=== PATIENT | male | born 1965 | race Caucasian/White ===

== ENCOUNTER 2018-09-01 10:10 | Observation (INO) | payer BC, OTHER ==
[2018-09-01 10:10] VITALS: BP 135/85
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
[2018-09-01 11:18] LABS: BASO # 0.1 x10^3/uL (0.0-0.2); BASO % 1 % (0-3); EOS # 0.1 x10^3/uL (0.0-0.7); EOS % 1 % (0-3); HEMATOCRIT 45.2 % (39.0-53.0); HEMOGLOBIN 15.2 g/dL (13.0-17.5); LYMPH # 1.7 x10^3/uL (1.0-4.8); LYMPH % 18 % (24-48); MEAN CORPUSCULAR HEMOGLOBIN 30 pg (25-35); MEAN CORPUSCULAR HGB CONC 34 g/dL (31-37); MEAN CORPUSCULAR VOLUME 89 fL (79-100); MONO # 0.8 x10^3/uL (0.0-1.1); MONO % 9 % (0-9); NEUT # 6.8 x10^3uL (1.8-7.7); NEUT % 72 % (31-73); PLATELET COUNT 220 x10^3/uL (140-400); RED BLOOD COUNT 5.06 x10^6/uL (4.30-5.70); RED CELL DISTRIBUTION WIDTH 13.4 % (11.5-14.5); WHITE BLOOD COUNT 9.4 x10^3/uL (4.0-11.0)
[2018-09-01 11:38] LABS: ALBUMIN 3.6 g/dL (3.4-5.0); ALBUMIN/GLOBULIN RATIO 1.2 (1.0-1.7); CALCIUM 8.8 mg/dL (8.5-10.1); CREATININE 1.2 mg/dL (0.7-1.3); GFR 62.9; TOTAL BILIRUBIN 0.4 mg/dL (0.2-1.0); TOTAL PROTEIN 6.6 g/dL (6.4-8.2)
[2018-09-01 12:27] LABS: BARBITURATES NEG (NEG); BENZODIAZEPINES NEG (NEG); CANNABINOIDS NEG (NEG); COCAINE NEG (NEG); METHADONE NEG (NEG); OPIATES NEG (NEG); PHENCYCLIDINE NEG (NEG)
[2018-09-01 12:44] LABS: AMPHETAMINE/METHAMPHETAMINE NEG (NEG)
[2018-09-01 13:10] LABS: BACTERIA,URINE 0 /HPF (0-FEW); BILIRUBIN,URINE NEG (NEG); CLARITY,URINE CLEAR; COLOR,URINE YELLOW; GLUCOSE,URINE NEG (NEG); NITRITE,URINE NEG (NEG); RBC,URINE 0 /HPF (0-2); SQUAMOUS EPITHELIAL CELL,UR OCC /LPF; UROBILINOGEN,URINE 0.2 mg/dL (0.2 mg/dL); WBC,URINE 0 /HPF (0-4)
[2018-09-01] MEDS ORDERED: ALPR0.5T PO (15:41)
[2018-09-01] MEDS ORDERED: SERT25TA PO (15:41)
[2018-09-01 15:51] VITALS: BP 121/78
[2018-09-01 19:25] VITALS: BP 119/75
[2018-09-01] MEDS ORDERED: ALPRAZolam 0.5 MG TABLET PO SCH (21:00)
[2018-09-01] MEDS ORDERED: PRAZOSIN 1 MG CAPSULE. PO SCH (21:00)
[2018-09-02 00:04] VITALS: BP 128/68
[2018-09-02 05:28] VITALS: BP 110/77
[2018-09-02] MEDS ORDERED: SERTRALINE 25 MG TABLET. PO SCH (09:00)
[2018-09-02] MEDS ORDERED: ACETAMINOPHEN 325 MG TABLET PO PRN (09:45)
[2018-09-02] MEDS ORDERED: OLAN5TAB5 PO (10:36)
[2018-09-02] MEDS ORDERED: PRAZ1CAP PO (10:36)
--- NOTE | 2018-09-02 12:26 | PDOC ---
Exam Note: Quoc Note: Please also refer to the separate dictated note~for this date of service dictated separately.~Patient seen individually. Discussed the patient with Nursing staff reviewed the chart.~Reviewed interim history and current functioning. Reviewed vital signs,~Labs/ Radiology~and current medications noted below. Continue current treatment with the changes noted in the dictated addendum note. late entry for 09/01/18 Assessment: Vital Signs: VS - Last 72 Hours, by Label Date Time Temp Pulse Resp B/P (MAP) Pulse Ox O2 Delivery O2 Flow Rate FiO2 09/02/18 08:00 Room Air 09/02/18 05:28 98.2 82 18 110/77 (88) 93 Room Air 09/02/18 00:04 98.5 68 128/68 (88) 98 Room Air 09/01/18 20:35 75 121/78 09/01/18 20:00 Room Air 09/01/18 19:25 98.2 76 20 119/75 (90) 94 Room Air 09/01/18 15:51 98.2 75 20 121/78 (92) 95 Room Air 09/01/18 11:00 Room Air 09/01/18 10:10 98.3 65 20 135/85 (102) 94 Room Air Vital Signs Date Time Temp Pulse Resp B/P (MAP) Pulse Ox O2 Delivery O2 Flow Rate FiO2 09/02/18 08:00 Room Air 09/02/18 05:28 98.2 82 18 110/77 (88) 93 I&O Intake and Output 09/02/18 07:00 Intake Total 820 ml Balance 820 ml Intake Oral 820 ml # Voids 5 Current Medications: Meds: Current Medications Olanzapine (ZyPREXA ZYDIS) 5 mg PRN Q2HR PRN PO ANXIETY / AGITATION; Start 09/01/18 at 11:15; Stop 09/02/18 at 11:13; Status DC Alprazolam (Xanax) 0.5 mg QHS PO Last administered on 09/01/18at 20:35; Start 09/01/18 at 21:00; Stop 09/02/18 at 11:13; Status DC Sertraline HCl (Zoloft) 25 mg DAILY PO Last administered on 09/02/18at 09:29; Start 09/02/18 at 09:00; Stop 09/02/18 at 11:13; Status DC Prazosin HCl (Minipress) 1 mg HS PO Last administered on 09/01/18at 20:35; Start 09/01/18 at 21:00; Stop 09/02/18 at 11:13; Status DC Acetaminophen (Tylenol) 650 mg PRN Q6HRS PRN PO PAIN / TEMP Last administered on 09/02/18at 09:56; Start 09/02/18 at 09:45; Stop 09/02/18 at 11:13; Status DC Active Scripts Active Zyprexa Zydis (Olanzapine) 5 Mg Tab.rapdis 5 Mg PO PRN Q2HR PRN Minipress (Prazosin Hcl) 1 Mg Capsule 1 Mg PO HS Reported Zoloft (Sertraline Hcl) 25 Mg Tablet 1 Tab PO DAILY Xanax (Alprazolam) 0.5 Mg Tablet 1 Tab PO HS I have reviewed the current psychotropics carefully including drug interactions. Risk benefit ratio favors no change other than as noted in my dictated progress note. Diagnosis: Problems: (1) PTSD (post-traumatic stress disorder) (2) Anxiety TERI ROSALES MD Sep 02, 2018 12:26
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
== END 2018-09-02 11:12 | disposition home or self-care (01) ==
LOC: 1 SOUTH 10:10 → INTOOBSV 10:10
PROVIDERS: ADMIT Family Medicine; ATTEND Family Medicine
DX: F43.10 Post-traumatic stress disorder, unspecified (principal); F41.9 Anxiety disorder, unspecified; G47.9 Sleep disorder, unspecified; Z79.899 Other long term (current) drug therapy
CPT/HCPCS: 36415; 80053; 80307; 81001; 85025; 87086; G0378; G0379; G0480

== ENCOUNTER → 2019-07-17 | Outpatient (CLI) | payer BC ==
[~2019-07-17] MED LIST: ALPR0.5T PO; BUPIVACAINE MPF 0.25% 10 ML VIAL. ONE; DEXAMETHASONE SOD PHOS 10 MG/ML VIAL ONE; GABA-586 PO; IOHEXOL 300 MG/ML 50 ML VIAL. ONE; LIDOCAINE 1% PF 30 ML VIAL. ONE; OLAN5TAB5 PO; PRAZ1CAP PO; SERT25TA PO; TRAM50TA PO
[2019-07-17 10:58] VITALS: BP 126/75
== END ==
LOC: SURG 09:28
PROVIDERS: ATTEND Anesthesiology
DX: M54.16 Radiculopathy, lumbar region (principal); M47.816 Spondylosis without myelopathy or radiculopathy, lumbar region; F17.210 Nicotine dependence, cigarettes, uncomplicated
CPT/HCPCS: 64483; 64484; J1100; J2001; J3490; Q9967

== ENCOUNTER 2019-12-14 09:07 | Inpatient (IN) | payer BC ==
[~2019-12-14] VITALS: Ht 182.9 cm; Wt 85.2 kg
[~2019-12-14 09:07] MED LIST changes: -BUPIVACAINE MPF 0.25% 10 ML VIAL. ONE; -DEXAMETHASONE SOD PHOS 10 MG/ML VIAL ONE; -IOHEXOL 300 MG/ML 50 ML VIAL. ONE; -LIDOCAINE 1% PF 30 ML VIAL. ONE
[2019-12-14] MEDS ORDERED: KETOROLAC 30 MG/ML VIAL. IVP PRN (10:00)
[2019-12-14] MEDS ORDERED: traMADol 50 MG TABLET PO PRN (10:00)
[2019-12-14] MEDS ORDERED: ASPI-630 PO (10:12)
[2019-12-14] MEDS ORDERED: IOHEXOL 300 MG/ML 75 ML VIAL. IV ONE (10:15)
[2019-12-14 10:23] LABS: BASO # 0.1 x10^3/uL (0.0-0.2); BASO % 1 % (0-3); EOS % 0 % (0-3); HEMATOCRIT 50.9 % (39.0-53.0); HEMOGLOBIN 16.8 g/dL (13.0-17.5); LYMPH # 1.2 x10^3/uL (1.0-4.8); LYMPH % 10 % (24-48); MEAN CORPUSCULAR HEMOGLOBIN 30 pg (25-35); MEAN CORPUSCULAR HGB CONC 33 g/dL (31-37); MEAN CORPUSCULAR VOLUME 91 fL (79-100); MONO # 1.1 x10^3/uL (0.0-1.1); MONO % 10 % (0-9); NEUT # 9.3 x10^3uL (1.8-7.7); NEUT % 80 % (31-73); PLATELET COUNT 214 x10^3/uL (140-400); RED CELL DISTRIBUTION WIDTH 13.9 % (11.5-14.5); WHITE BLOOD COUNT 11.7 x10^3/uL (4.0-11.0)
[2019-12-14 10:27] LABS: ALBUMIN/GLOBULIN RATIO 1.1 (1.0-1.7); CREATININE 1.5 mg/dL (0.7-1.3); GFR 48.4; TOTAL BILIRUBIN 0.5 mg/dL (0.2-1.0); TOTAL PROTEIN 7.8 g/dL (6.4-8.2)
[2019-12-14 10:38] VITALS: BP 123/79
[2019-12-14 10:40] LABS: INFLUENZA A PATIENT NEGATIVE (NEGATIVE); INFLUENZA B PATIENT NEGATIVE (NEGATIVE)
[2019-12-14] MEDS ORDERED: BENZOCAINE/MENTHOL LOZNGE 18'S BOX. PO PRN (10:45)
[2019-12-14] MEDS: IV NORMAL SALINE 1,000ML 1,000 ML IV SCH ×2 (10:46→17:41)
[2019-12-14] MEDS: KETOROLAC 30 MG/ML VIAL. IVP PRN (10:49)
[2019-12-14 11:03] LABS: MONONUCLEOSIS PATIENT NEGATIVE (NEGATIVE)
[2019-12-14] MEDS: IPRATRPIUM/ALBUTEROL 0.5/2.5MG 3 ML NEBU. NEB SCH ×3 (11:19→21:11)
--- NOTE | 2019-12-14 11:35 | RAD ---
CT SOFT TISSUE NECK W/CONTRAST History: Swollen tonsils and neck. Technique: CT imaging was performed of the neck soft tissues with contrast. Coronal and sagittal reconstructions were performed. Exposure: One or more of the following individualized dose reduction techniques were utilized for this examination: 1. Automated exposure control 2. Adjustment of the mA and/or kV according to patient size 3. Use of iterative reconstruction technique. Comparison: None Findings: Enlarged palatine tonsils, right greater than left. Focal hypoattenuation within the right inferior peritonsillar region measures 1.1 x 0.7 x 1.0 cm (series 2 image 68 and series 4 image 48). Enhancing thickened right hypopharyngeal mucosa. Prominent lingual tonsils. Mildly prominent right deep cervical chain lymph nodes. No pathologic lymphadenopathy. Normal appearance of the bilateral submandibular and parotid glands. Unremarkable thyroid gland. Imaged lung apices are unremarkable. Moderate right maxillary sinus polypoid mucosal thickening. Partial opacification of imaged ethmoid air cells. Mastoid air cells are clear. Imaged orbits and intracranial contents are unremarkable. Mild multilevel cervical spondylosis most prominent C5-C6. Impression: 1. Enlarged enhancing bilateral palatine tonsils, right greater than left. 2. Hypoattenuating focus within the right inferior peritonsillar region, may represent phlegmon/early abscess. Recommend follow-up to ensure resolution. 3. Prominent lingual tonsils. Electronically signed by: Kurt Mcdonald DO (12/14/2019 11:32 AM) [id number]
[2019-12-14] MEDS ORDERED: methylPREDNISolone SOD SUCC PF 40 MG/ML VIAL. IV SCH ×2 (12:00→21:00)
[2019-12-14] MEDS: PENICILLIN G K 5,000,000 UNIT in IV NORMAL SALINE 100ML 100 ML IV SCH ×2 (12:07→17:41)
--- NOTE | 2019-12-14 12:56 | RAD ---
CHEST PA LATERAL History: Shortness of breath, respiratory arrest Comparison: 02/01/2018 two-view chest x-ray. Findings: Frontal and lateral views of the chest were obtained. The cardiomediastinal silhouette is normal. Pulmonary vasculature is normal. The lungs are clear. No pleural effusion or pneumothorax is seen. There is no acute bone abnormality. IMPRESSION: No acute cardiopulmonary process. Electronically signed by: Juline Jovel MD (12/14/2019 12:53 PM) [facility]
[2019-12-14 13:32] LABS: THYROID STIM HORMONE (TSH) 0.601 uIU/mL (0.358-3.740)
[2019-12-14] MEDS ORDERED: GABAPENTIN 300 MG CAPSULE. PO SCH (14:00)
[2019-12-14] MEDS: methylPREDNISolone SOD SUCC PF 40 MG/ML VIAL. IV SCH ×2 (14:09→21:14)
[2019-12-14 19:04] VITALS: BP 102/58
[2019-12-14 22:34] VITALS: BP 113/73
[2019-12-15] MEDS: PENICILLIN G K 5,000,000 UNIT in IV NORMAL SALINE 100ML 100 ML IV SCH ×2 (00:51→06:19)
[2019-12-15] MEDS: IV NORMAL SALINE 1,000ML 1,000 ML IV SCH ×4 (02:28→17:48)
[2019-12-15] MEDS: KETOROLAC 30 MG/ML VIAL. IVP PRN (04:59)
[2019-12-15 05:40] VITALS: BP 91/49
[2019-12-15] MEDS: IPRATRPIUM/ALBUTEROL 0.5/2.5MG 3 ML NEBU. NEB SCH ×4 (05:44→21:52)
[2019-12-15] MEDS: methylPREDNISolone SOD SUCC PF 40 MG/ML VIAL. IV SCH ×3 (06:19→21:09)
[2019-12-15 07:31] LABS: BASO % 0 % (0-3); EOS % 0 % (0-3); HEMATOCRIT 42.5 % (39.0-53.0); HEMOGLOBIN 13.9 g/dL (13.0-17.5); LYMPH # 0.7 x10^3/uL (1.0-4.8); LYMPH % 4 % (24-48); MEAN CORPUSCULAR HEMOGLOBIN 30 pg (25-35); MEAN CORPUSCULAR HGB CONC 33 g/dL (31-37); MEAN CORPUSCULAR VOLUME 91 fL (79-100); MONO # 0.8 x10^3/uL (0.0-1.1); MONO % 5 % (0-9); NEUT % 91 % (31-73); PLATELET COUNT 195 x10^3/uL (140-400); RED BLOOD COUNT 4.68 x10^6/uL (4.30-5.70); RED CELL DISTRIBUTION WIDTH 13.8 % (11.5-14.5); WHITE BLOOD COUNT 16.4 x10^3/uL (4.0-11.0)
[2019-12-15 07:43] LABS: ALBUMIN 2.9 g/dL (3.4-5.0); CALCIUM 8.4 mg/dL (8.5-10.1); CREATININE 1.2 mg/dL (0.7-1.3); GFR 62.6; TOTAL BILIRUBIN 0.1 mg/dL (0.2-1.0); TOTAL PROTEIN 5.9 g/dL (6.4-8.2)
[2019-12-15 08:53] LABS: % ATYL 1 % (0-0); % BANDS 5 % (0-9); % LYMPHS 5 % (24-48); % MONOS 2 % (0-10); % SEGS 87 % (35-66); PLT ESTIMATE ADEQUATE (ADEQUATE)
[2019-12-15] MEDS: ASPIRIN 81 MG TAB.CHEW PO SCH (09:30)
[2019-12-15 11:18] VITALS: BP 100/58
[2019-12-15] MEDS: AMPICILLIN/SULBACTAM 3 GM in IV NORMAL SALINE 100ML 100 ML IV SCH ×3 (12:20→23:50)
[2019-12-15 15:07] VITALS: BP 113/61
[2019-12-15 18:43] VITALS: BP 107/64
[2019-12-16] MEDS: IV NORMAL SALINE 1,000ML 1,000 ML IV SCH ×2 (02:00→08:32)
--- NOTE | 2019-12-16 02:24 | PN ---
DATE: 12/15/2019 SUBJECTIVE: The patient with a peritonsillar abscess on the right side. He says he is feeling much better. His white count did go up probably secondary to the steroid therapy to help shrink down the peritonsillar area. It has receded somewhat. On exam, still a large ball back there, but it has actually decreased in size and the patient is remaining afebrile. OBJECTIVE: VITAL SIGNS: Blood pressure 113/60, respiratory rate 16, pulse 90, afebrile. NEUROLOGIC: The patient is alert and oriented with the peritonsillar abscesses noted, but decreased. I could not feel any mass in the submandibular area. Of course, he has some lymph nodes there, but other than that seems to be resting fairly comfortably. We will change him over to IV Timentin or Unasyn and make further evaluation. Glucose has shot up (NC) and albumin is down to 2.9 with adaidott-ov-bcculg protein malnutrition. The patient will continue to be monitored carefully. We may have to put him on a sliding scale and additional glucose monitoring since his sugars have gone up no doubt from the Solu-Medrol that is being given to him. He is improving and so we will continue to monitor him accordingly and get him up and move him around. He is ambulatory. He has been transferred from the ICU to the regular floor, still receiving IV antibiotic therapy though and this being a weekend, we are trying to find an ENT doctor who can review this patient. JAROCHO CHRISTIANSON MD DR: MIGUEL/gilles JOB#: [id number] / [id number]
[2019-12-16 05:00] VITALS: BP 105/58
[2019-12-16] MEDS: AMPICILLIN/SULBACTAM 3 GM in IV NORMAL SALINE 100ML 100 ML IV SCH ×2 (05:09→11:59)
[2019-12-16] MEDS: methylPREDNISolone SOD SUCC PF 40 MG/ML VIAL. IV SCH (05:09)
[2019-12-16] MEDS: KETOROLAC 30 MG/ML VIAL. IVP PRN (05:14)
[2019-12-16] MEDS: IPRATRPIUM/ALBUTEROL 0.5/2.5MG 3 ML NEBU. NEB SCH ×2 (05:37→09:45)
[2019-12-16] MEDS: ASPIRIN 81 MG TAB.CHEW PO SCH (08:31)
[2019-12-16 08:40] VITALS: BP 103/61
[2019-12-16 11:25] VITALS: BP 108/62
[2019-12-16] MEDS ORDERED: AMOX250S20 PO (11:54)
[2019-12-16] MEDS ORDERED: METH4TAB2 PO (11:54)
--- NOTE | 2019-12-18 00:49 | DS ---
DATE OF DISCHARGE: 12/16/2019 HOSPITAL COURSE: A 54-year-old gentleman initially came in, what appeared to be an abscessed area to his right peritonsillar area. The patient had a CT scan of the neck and pretty much sure that there was an area in peritonsillar region that was possible early abscess. However, the patient was breathing easily and no difficulty in swallowing. He is admitted, placed on IV antibiotic therapy initially penicillin then switched over to Unasyn and the patient made excellent progress during the rest of his hospitalization. The patient had remained afebrile for the last 36 hours before being discharged. Blood pressure was stable at 110/62, respiratory rate 18, pulse 85, afebrile. He was discharged home for followup as an outpatient. We will continue on Augmentin and make further evaluation on him as indicated as an outpatient. IMPRESSION: Peritonsillar swelling with hypertrophied mild abscess, otherwise unremarkable. The patient made good progress during the rest of his hospitalization. There was some increase in the white count, no doubt secondary to his use of steroids as did his blood sugar go up. The patient also was noted to have a decrease in his creatinine from 1.5 to 1.2 consistent with the patient's acute renal insufficiency secondary to renal stasis, influenza group A were all negative in this situation, the patient's flu swabs were also negative as well as his mono spot. In any case, the patient made good progress. He was discharged home. He will be on Augmentin, soft diet. Return to clinic in 3-4 days or sooner as needed. JAROCHO CHRISTIANSON MD DR: MIGUEL/gilles JOB#: [id number] / [id number]
== END 2019-12-16 13:54 | disposition short-term general hospital (02) | DRG 152 ==
LOC: ICU 09:20 → 1 SOUTH 12-15 13:40
PROVIDERS: ADMIT Family Medicine; ATTEND Family Medicine
DX: J36 Peritonsillar abscess (principal); E43 Unspecified severe protein-calorie malnutrition; N28.9 Disorder of kidney and ureter, unspecified; T38.0X5A Adverse effect of glucocorticoids and synthetic analogues, initial encounter; Y92.89 Other specified places as the place of occurrence of the external cause; Z68.25 Body mass index [BMI] 25.0-25.9, adult
CPT/HCPCS: 36415; 70491; 71046; 80053; 80061; 82947; 83605; 84443; 85007; 85025; 86308; 87070; 87641; 87804; 87880; 94640; J0295; J1885; J2540; J2920; J7620; Q9967; J7030

== ENCOUNTER 2019-12-17 07:21 | Inpatient (IN) | payer BC ==
[~2019-12-17] VITALS: Ht 182.9 cm; Wt 91.4 kg
[~2019-12-17 07:21] MED LIST changes: +AMOX250S20 PO; +ASPI-630 PO; +METH4TAB2 PO
[2019-12-17] MEDS ORDERED: IV NORMAL SALINE 1,000ML 1,000 ML IV SCH (07:41)
[2019-12-17] MEDS ORDERED: IPRATRPIUM/ALBUTEROL 0.5/2.5MG 3 ML NEBU. NEB ONE (07:45)
[2019-12-17] MEDS ORDERED: methylPREDNISolone SOD SUCC PF 125 MG/2 ML VIAL. IV ONE (07:45)
[2019-12-17] MEDS ORDERED: MORPHINE SULFATE 4 MG/ML DISP.SYRIN. IV/SQ PRN (07:45)
[2019-12-17 08:10] LABS: BASO % 0 % (0-3); EOS % 0 % (0-3); HEMOGLOBIN 13.3 g/dL (13.0-17.5); LYMPH # 0.9 x10^3/uL (1.0-4.8); LYMPH % 7 % (24-48); MEAN CORPUSCULAR HEMOGLOBIN 30 pg (25-35); MEAN CORPUSCULAR HGB CONC 33 g/dL (31-37); MEAN CORPUSCULAR VOLUME 91 fL (79-100); MONO # 1.2 x10^3/uL (0.0-1.1); MONO % 10 % (0-9); NEUT # 9.9 x10^3uL (1.8-7.7); NEUT % 82 % (31-73); PLATELET COUNT 226 x10^3/uL (140-400); RED BLOOD COUNT 4.49 x10^6/uL (4.30-5.70); RED CELL DISTRIBUTION WIDTH 14.1 % (11.5-14.5); WHITE BLOOD COUNT 12.1 x10^3/uL (4.0-11.0)
[2019-12-17] MEDS ORDERED: IOHEXOL 300 MG/ML 75 ML VIAL. IV ONE (08:15)
[2019-12-17 08:25] LABS: INFLUENZA A PATIENT NEGATIVE (NEGATIVE); INFLUENZA B PATIENT NEGATIVE (NEGATIVE)
--- NOTE | 2019-12-17 08:33 | PHYS DOC ---
Adult General Chief Complaint Chief Complaint: SORE THROAT HPI HPI Patient is a 54-year-old male who presents with complaint of worsening sore throat and tightness in his throat. Patient was recently admitted into the hospital for fever and tonsillitis. Patient states that he was discharged home yesterday and states that symptoms had improved but since going home symptoms have again worsened. He is having difficulty with swallowing and feels like his airway is narrowing. He also indicates that he has a a lot of coughing that is making him very sore.[] Review of Systems Review of Systems Constitutional: Positive fever and chills [] HENT: Positive congestion and sore throat [] Respiratory: Positive cough without shortness of breath [] Cardiovascular: No additional information not addressed in HPI [] GI: Denies abdominal pain, nausea, vomiting or diarrhea [] Neurologic: Denies headache, focal weakness or sensory changes [] All other systems were reviewed and found to be within normal limits, except as documented in this note. Current Medications Current Medications Current Medications Medications (Trade) Dose Ordered Sig/Reyna Start Time Stop Time Status Last Admin Dose Admin Albuterol/ Ipratropium (Duoneb) 3 ml 1X ONCE 12/17/19 07:45 12/17/19 07:54 DC 12/17/19 07:55 3 ML Iohexol (Omnipaque 300 Mg/ml) 75 ml 1X ONCE 12/17/19 08:15 12/17/19 08:16 DC Methylprednisolone Sodium Succinate (SOLU-Medrol 125MG VIAL) 125 mg 1X ONCE 12/17/19 07:45 12/17/19 07:54 DC 12/17/19 07:57 125 MG Morphine Sulfate (Morphine 4mg Syringe) 4 mg PRN Q15MIN PRN 12/17/19 07:45 12/18/19 07:44 12/17/19 07:58 4 MG Sodium Chloride 1,000 ml @ 1,000 mls/hr Q1H 12/17/19 07:41 12/17/19 08:40 12/17/19 07:55 1,000 MLS/HR Allergies Allergies Allergies Coded Allergies Type Severity Reaction Last Updated Verified I S O L A T I O N *CONTACT* Allergy Unknown 12/17/19 Yes NKMA Allergy Unknown 12/17/19 Yes Physical Exam Physical Exam Constitutional: Well developed, well nourished, no acute distress, non-toxic appearance. [] HENT: Normocephalic, atraumatic, bilateral external ears normal, there is pharyngeal erythema with tonsillar swelling on the right. No uvular deviation is noted and no trismus is noted. [] Eyes: PERRLA, EOMI, conjunctiva normal, no discharge. [] Neck: Normal range of motion, no tenderness, supple. [] Cardiovascular: Regular rate and rhythm[] Lungs & Thorax: There are bilateral wheezes, right greater than left to auscultation [] Abdomen: Bowel sounds normal, soft, no tenderness. [] Skin: Warm, dry, no erythema, no rash. [] Extremities: No tenderness, no cyanosis, no clubbing, ROM intact. [] Neurologic: Alert and oriented X 3, no focal deficits noted. [] Current Patient Data Vital Signs Vital Signs Date Time Temp Pulse Resp B/P (MAP) Pulse Ox O2 Delivery O2 Flow Rate FiO2 12/17/19 07:58 24 Room Air 12/17/19 07:52 93 Lab Results Laboratory Tests Test 12/17/19 07:52 White Blood Count 12.1 x10^3/uL (4.0-11.0) H Red Blood Count 4.49 x10^6/uL (4.30-5.70) Hemoglobin 13.3 g/dL (13.0-17.5) Hematocrit 41.0 % (39.0-53.0) Mean Corpuscular Volume 91 fL (79-100) Mean Corpuscular Hemoglobin 30 pg (25-35) Mean Corpuscular Hemoglobin Concent 33 g/dL (31-37) Red Cell Distribution Width 14.1 % (11.5-14.5) Platelet Count 226 x10^3/uL (140-400) Neutrophils (%) (Auto) 82 % (31-73) H Lymphocytes (%) (Auto) 7 % (24-48) L Monocytes (%) (Auto) 10 % (0-9) H Eosinophils (%) (Auto) 0 % (0-3) Basophils (%) (Auto) 0 % (0-3) Neutrophils # (Auto) 9.9 x10^3uL (1.8-7.7) H Lymphocytes # (Auto) 0.9 x10^3/uL (1.0-4.8) L Monocytes # (Auto) 1.2 x10^3/uL (0.0-1.1) H Eosinophils # (Auto) 0.0 x10^3/uL (0.0-0.7) Basophils # (Auto) 0.0 x10^3/uL (0.0-0.2) Influenza Type A (Rapid) Negative (NEGATIVE) Influenza Type B (Rapid) Negative (NEGATIVE) EKG EKG [] Radiology/Procedures Radiology/Procedures [] Impressions: PROCEDURE: CT SOFT TISSUE NECK W/CONTRAST EXAM: CT Neck with IV contrast INDICATION: Throat pain question developing peritonsillar abscess. TECHNIQUE: Multiple contiguous axial images were obtained of the neck with the use of IV contrast. Post-processing reconstructed images were obtained for interpretation. All CT scans performed at this facility utilize dose optimization techniques as appropriate to the exam, including the following: Automated exposure control and adjustment of the mA and/or KV according to patient size (this includes techniques or standardized protocols for targeted exams where dose is indication/reason for exam). IV CONTRAST: Administered COMPARISON: Soft tissue neck CT with IV contrast of 12/14/2019 FINDINGS: INTRACRANIAL STRUCTURES & ORBITS: Unremarkable. AERODIGESTIVE: Redemonstrated is bilateral right greater than left enlargement of the faucial (palatine) tonsils with interval decrease in ill-defined hypoenhancement in the inferolateral aspect of the right faucial tonsil, consistent with an improving peritonsillar phlegmon. No ring enhancement suspicious for an organized abscess. Mild asymmetric enlargement of the right lingual tonsil is also evident without abnormal enhancement. Scattered mucosal thickening in the paranasal sinuses, primarily the right greater than left maxillary sinuses and the ethmoid air cells anteriorly are noted. Otherwise the nasal cavity, nasopharynx, oral cavity, oropharynx, hypopharynx, larynx, and visualized trachea and esophagus demonstrate no masses or abnormal enhancement. CERVICAL LYMPH NODES & SOFT TISSUES: Moderately enlarged right greater than left bilateral cervical adenopathy is conspicuous at levels 2 and 3 are present. No separative adenopathy is seen. Normal enhancement in the cervical great vessels. THYROID & SALIVARY GLANDS: Unremarkable. LUNG APICES: Clear. OSSEOUS: Unremarkable IMPRESSION: Improving findings of acute tonsillitis with improvement in phlegmonous tissue in the right peritonsillar region. No organized, drainable abscess is apparent. Consider continued follow-up to resolution if clinically warranted. Electronically signed by: Edmund Mcnamara MD (12/17/2019 9:16 AM) [facility] DICTATED AND SIGNED BY: EDMUND MCNAMARA MD DATE: 12/17/19 09 CC: ALISA MAST Jr. DO; JAROCHO CHRISTIANSON MD ~ Course & Med Decision Making Course & Med Decision Making Pertinent Labs and Imaging studies reviewed. (See chart for details) [] Dragon Disclaimer Dragon Disclaimer This electronic medical record was generated, in whole or in part, using a voice recognition dictation system. Departure Departure: Impression: Primary Impression: Tonsillitis Additional Impression: Fever Disposition: ADMITTED INPATIENT Admitting Physician: Jarocho Christianson Condition: IMPROVED Referrals: JAROCHO CHRISTIANSON MD (PCP) Problem Qualifiers Additional Impression: Fever Fever type: unspecified Qualified Codes: R50.9 - Fever, unspecified ALISA MAST Jr., DO Dec 17, 2019 08:33
[2019-12-17 08:39] LABS: CALCIUM 8.2 mg/dL (8.5-10.1); GFR 77.3; POTASSIUM 4.3 mmol/L (3.5-5.1)
[2019-12-17 08:45] LABS: ALBUMIN 2.9 g/dL (3.4-5.0); TOTAL BILIRUBIN 0.3 mg/dL (0.2-1.0); TOTAL PROTEIN 5.8 g/dL (6.4-8.2)
--- NOTE | 2019-12-17 09:19 | RAD ---
EXAM: CT Neck with IV contrast INDICATION: Throat pain question developing peritonsillar abscess. TECHNIQUE: Multiple contiguous axial images were obtained of the neck with the use of IV contrast. Post-processing reconstructed images were obtained for interpretation. All CT scans performed at this facility utilize dose optimization techniques as appropriate to the exam, including the following: Automated exposure control and adjustment of the mA and/or KV according to patient size (this includes techniques or standardized protocols for targeted exams where dose is indication/reason for exam). IV CONTRAST: Administered COMPARISON: Soft tissue neck CT with IV contrast of 12/14/2019 FINDINGS: INTRACRANIAL STRUCTURES & ORBITS: Unremarkable. AERODIGESTIVE: Redemonstrated is bilateral right greater than left enlargement of the faucial (palatine) tonsils with interval decrease in ill-defined hypoenhancement in the inferolateral aspect of the right faucial tonsil, consistent with an improving peritonsillar phlegmon. No ring enhancement suspicious for an organized abscess. Mild asymmetric enlargement of the right lingual tonsil is also evident without abnormal enhancement. Scattered mucosal thickening in the paranasal sinuses, primarily the right greater than left maxillary sinuses and the ethmoid air cells anteriorly are noted. Otherwise the nasal cavity, nasopharynx, oral cavity, oropharynx, hypopharynx, larynx, and visualized trachea and esophagus demonstrate no masses or abnormal enhancement. CERVICAL LYMPH NODES & SOFT TISSUES: Moderately enlarged right greater than left bilateral cervical adenopathy is conspicuous at levels 2 and 3 are present. No separative adenopathy is seen. Normal enhancement in the cervical great vessels. THYROID & SALIVARY GLANDS: Unremarkable. LUNG APICES: Clear. OSSEOUS: Unremarkable IMPRESSION: Improving findings of acute tonsillitis with improvement in phlegmonous tissue in the right peritonsillar region. No organized, drainable abscess is apparent. Consider continued follow-up to resolution if clinically warranted. Electronically signed by: Luis Angel Mcnamara MD (12/17/2019 9:16 AM) [facility]
[2019-12-17] MEDS ORDERED: MORPHINE SULFATE 4 MG/ML DISP.SYRIN. IV PRN (10:15)
[2019-12-17] MEDS ORDERED: ACETAMINOPHEN 325 MG TABLET PO PRN (10:15)
[2019-12-17] MEDS ORDERED: ONDANSETRON PF 4 MG/2 ML VIAL. IV PRN (10:15)
[2019-12-17] MEDS: IPRATRPIUM/ALBUTEROL 0.5/2.5MG 3 ML NEBU. NEB SCH ×3 (12:00→20:58)
[2019-12-17 12:13] VITALS: BP 108/70
[2019-12-17] MEDS: IV NORMAL SALINE 1,000ML 1,000 ML IV SCH ×2 (12:23→20:57)
--- NOTE | 2019-12-17 12:53 | NUR ---
NURSING NOTE ADMIT PT ADMIT FROM ED TO ROOM 107 AT 1135 VIA EMS. PT STATES HE WAS JUST DISCHARGED HOME BUT HAVING DIFFICULTLY OVERNIGHT WITH BREATHING AND SORE THROAT. PT IS WHEEZING UPON ARRIVAL AND IS CURRENTLY ON 2L OF OXYGEN. PT SETTLED IN ROOM. BEDSIDE SWALLOW TEST DONE AND OKAY FOR PT TO EAT LUNCH. PT IS CALM AND COOPERATIVE. NO COMPLICATIONS. TY GODOY.
[2019-12-17] MEDS: GABAPENTIN 300 MG CAPSULE. PO SCH ×2 (14:12→20:58)
[2019-12-17 16:35] VITALS: BP 128/69
[2019-12-17] MEDS: AMPICILLIN/SULBACTAM 3 GM in IV NORMAL SALINE 100ML 100 ML IV SCH (17:34)
[2019-12-17 19:44] VITALS: BP 119/69
[2019-12-17] MEDS: methylPREDNISolone SOD SUCC PF 40 MG/ML VIAL. IV SCH (20:57)
[2019-12-17] MEDS ORDERED: ZOLPIDEM 5 MG TABLET. PO PRN (23:00)
[2019-12-17 23:17] VITALS: BP 112/62
[2019-12-18] MEDS: AMPICILLIN/SULBACTAM 3 GM in IV NORMAL SALINE 100ML 100 ML IV SCH ×5 (00:44→23:36)
[2019-12-18 05:33] VITALS: BP 115/70
[2019-12-18] MEDS: IPRATRPIUM/ALBUTEROL 0.5/2.5MG 3 ML NEBU. NEB SCH ×2 (05:43→09:36)
[2019-12-18 06:31] LABS: BASO % 0 % (0-3); EOS % 0 % (0-3); HEMATOCRIT 39.6 % (39.0-53.0); HEMOGLOBIN 13.1 g/dL (13.0-17.5); LYMPH # 0.9 x10^3/uL (1.0-4.8); LYMPH % 11 % (24-48); MEAN CORPUSCULAR HEMOGLOBIN 30 pg (25-35); MEAN CORPUSCULAR HGB CONC 33 g/dL (31-37); MEAN CORPUSCULAR VOLUME 91 fL (79-100); MONO # 0.6 x10^3/uL (0.0-1.1); MONO % 7 % (0-9); NEUT % 82 % (31-73); PLATELET COUNT 209 x10^3/uL (140-400); RED BLOOD COUNT 4.35 x10^6/uL (4.30-5.70); RED CELL DISTRIBUTION WIDTH 13.8 % (11.5-14.5); WHITE BLOOD COUNT 8.5 x10^3/uL (4.0-11.0)
[2019-12-18 06:34] LABS: CALCIUM 8.1 mg/dL (8.5-10.1); GFR 77.3; POTASSIUM 4.1 mmol/L (3.5-5.1)
[2019-12-18] MEDS: traMADol 50 MG TABLET PO PRN ×2 (07:17→20:29)
[2019-12-18] MEDS: methylPREDNISolone SOD SUCC PF 40 MG/ML VIAL. IV SCH ×2 (07:45→20:29)
[2019-12-18] MEDS: ASPIRIN 81 MG TAB.CHEW PO SCH (07:45)
[2019-12-18] MEDS: IV NORMAL SALINE 1,000ML 1,000 ML IV SCH (07:45)
[2019-12-18] MEDS: GABAPENTIN 300 MG CAPSULE. PO SCH ×3 (07:45→20:29)
[2019-12-18] MEDS ORDERED: METHYLPREDNISOLONE 4 MG PO SCH (09:00)
--- NOTE | 2019-12-18 09:27 | NUR ---
NURSING NOTE PT WAS IN BED THIS AM UPON ASSESSMENT AND MEDICATION ADMINISTRATION. PT IS A & O. PT C/O PAIN 04/02. PRN PAIN MEDICATION GIVEN TO PT. PT WAS SEEN BY DR CHRISTIANSON THIS AM. PLAN IS TO STAY OVER NIGHT, GET PICC LINE TOMORROW, AND DC HOME WITH IV INFUSIONS EITHER AT HOME OR AN OUTPT. PT IS CALM, COOPERATIVE, AND COMPLIANT. WORK NOTE GIVEN TO PT. COPY IN CHART. PT STATES HE IS BREATHING BETTER BUT STILL HAVING THROAT PAIN. WILL CONTINUE TO MONITOR. TY GODOY.
--- NOTE | 2019-12-18 10:04 | HP ---
ADMIT DATE: 12/17/2019 HISTORY OF PRESENT ILLNESS: The patient had recently been discharged with a peritonsillar abscess. He was doing well on IV antibiotic therapy. He was switched over from Unasyn to Augmentin comfortable doses and over the night, the patient began to have trouble breathing. He also began to spike temperatures again and as noted, the patient became increasingly ill to the point where he was having trouble breathing. His temperature went back up to 101.7, pulse of 97. The patient became apparently septic and was readmitted through the Emergency Room to the hospital because of this reoccurrence and failure of outpatient therapy. A PCR that had been done through the office showed Haemophilus influenza, which should have been sensitive to not only obviously the Unasyn but to Augmentin. But in any case, because the patient was having difficulty breathing, his temperature up to 101.7, recurrence and failure of outpatient therapy, the patient was readmitted to the hospital for further evaluation, IV antibiotic therapy, which seemed to be the only course of therapy that seemed to control this. Repeat CT scan did show that there was some improvement in the total peritonsillar area; however, the numbers in this case demonstrated the significance of the patient's illness. The patient's oxygen saturation had dropped down into the low 90s, which is unusual for him. He came in for IV antibiotic therapy, setting him up eventually with PICC lines and IV antibiotic therapy as an outpatient until we can get him into further testing. PAST MEDICAL HISTORY: He has been admitted in the past for MRSA infections. He has been admitted in the past of course for peritonsillar abscesses, bilateral knee surgery, right ankle surgery, back surgery, back pain, influenza up-to-date vaccination, he has also had a cholecystectomy. ALLERGIES: The patient has no known allergies. FAMILY HISTORY: Unremarkable. SOCIAL HISTORY: The patient denies smoking, alcohol or drug use. REVIEW OF SYSTEMS: The patient did have shortness of breath, unable to breathe if he lies on his right side, had to move to his left side to get air and start breathing better. The patient otherwise denied any nausea, vomiting, melena, hematochezia, hematemesis and neurologically baseline stable, very pleasant gentleman. PHYSICAL EXAMINATION: VITAL SIGNS: As noted, it was 140/72, respiratory rate 18, pulse 97, temperature 101.7, this morning is down to 115/70, respiratory rate 18, pulse 50, afebrile, oxygen saturation has gone up to 97%. HEENT: The patient's head was atraumatic, normocephalic. Eyes: PERRLA without jaundice. The mouth and throat show swelling to the right peritonsillar area, which has gone down from previous. The left peritonsillar area is slightly swollen compared to where it was, but there is no apparent obstruction to the airway itself. NECK: Supple. There is no lymphadenopathy or massive swelling except for some mild shotty lymph nodes ____ to the anterior chain of the lymph nodes of the anterior triangle. The patient's tongue was basically normal. Nostrils are normal. Eyes, PERRLA, EOMI. LUNGS: Clear to auscultation. CARDIOVASCULAR: Regular sinus rhythm. ABDOMEN: Soft, nontender. EXTREMITIES: No clubbing, cyanosis or edema. NEUROLOGIC: The patient is alert and oriented. Speech is fluent, spontaneous, appropriate baseline everywhere there. LABORATORY DATA: The patient's labs were significant for white count of 12, hemoglobin of 13 and hematocrit 41. Chemistries again showed sodium and potassium 140 and 4.3. Initial blood sugar was 85, has gone up to 150 with IV Solu-Medrol and cut down some of the swelling, total albumin of 2.9. The patient will be admitted for further evaluation and treatment for IV antibiotic therapy, failure of outpatient therapy with oral antibiotics along the same microbial coverage. IMPRESSION: Sepsis, peritonsillar abscess, probable a bug related Haemophilus influenza. The patient otherwise has some obstructive sleep apnea. PLAN: The patient will be admitted, IV antibiotic therapy. PICC line. Outpatient IV antibiotic therapies. Given work release for 2 weeks due to the severity of his illness and the recurrence of such at that time. JAROCHO CHRISTIANSON MD DR: MIGUEL/gilles JOB#: [id number] / [id number]
[2019-12-18 10:46] VITALS: BP 120/68
[2019-12-18 15:53] VITALS: BP 110/68
[2019-12-18 18:36] VITALS: BP 122/77
[2019-12-18] MEDS ORDERED: ACETAMINOPHEN 325 MG TABLET PO PRN (19:00)
[2019-12-18 19:58] VITALS: BP 126/73
[2019-12-18] MEDS: LACTOBACILLUS RHAMNOSUS GG 1 CAPSULE. PO SCH (20:29)
[2019-12-18 22:24] VITALS: BP 135/81
[2019-12-19] MEDS: AMPICILLIN/SULBACTAM 3 GM in IV NORMAL SALINE 100ML 100 ML IV SCH ×2 (05:54→11:35)
[2019-12-19 06:02] VITALS: BP 139/76
[2019-12-19] MEDS: GABAPENTIN 300 MG CAPSULE. PO SCH ×2 (08:16→13:52)
[2019-12-19] MEDS: ASPIRIN 81 MG TAB.CHEW PO SCH (08:17)
[2019-12-19] MEDS: methylPREDNISolone SOD SUCC PF 40 MG/ML VIAL. IV SCH (08:17)
[2019-12-19] MEDS: LACTOBACILLUS RHAMNOSUS GG 1 CAPSULE. PO SCH (08:17)
[2019-12-19] MEDS ORDERED: LACT1CAP19 PO (10:11)
[2019-12-19] MEDS ORDERED: AMPI3VIA5 IJ (10:11)
--- NOTE | 2019-12-19 10:12 | DISCH ---
HOME HEALTH DISCHARGE/MEDS DISCHARGE INFORMATION: Discharge Date: Dec 19, 2019 Final Diagnosis: Problems Medical Problems: (1) Fever Status: Acute (2) Tonsillitis Status: Acute Condition on Discharge: Stable CODE STATUS: Code Status: Full HOME HEALTH: Face to Face: I certify this patient is under my care and that I, or a nurse practitioner or physician's assistant financial accountant working with me, had a face to face encounter that meets the physician face to face encounter requirements with this patient on [Date]. Medical Condition(s): Other (tonsillitis) Correction For: Admin/Educate Injections, Assess Cardiopulm Status POST DISCHARGE ORDERS: Activity Instructions for Disc: Activity as tolerated Weight Bearing Status after Di: No restrictions DIET AFTER DISCHARGE: Regular CERTIFICATION STATEMENT: Certification Statement: Based on the above finding, I certify that this patient is confined to the home and needs intermittent shelter care, physical therapy and/or speech therapy, or continues to need occupational therapy.~ This patient is under my care, and I have initiated the establishment of the plan of care.~ This patient will be followed by myself or a community physician who will periodically review the plan of care. DISCHARGE MEDICATIONS: Home Meds Active Scripts Methylprednisolone (MEDROL) 4 Mg Tab.ds.pk, 4 MG PO DAILY for tonsilitis for 7 Days, #7 PKG Prov:JAROCHO CHRISTIANSON MD 12/16/19 Amoxicillin/Potassium Clav (AUGMENTIN 250-62.5 MG/5 ML) 250 Mg/5 Ml Susp.recon, 10 ML PO BID for tonsilitis for 10 Days, #200 ML 0 Refills Prov:JAROCHO CHRISTIANSON MD 12/16/19 Reported Medications Aspirin (ASPIRIN) 81 Mg Tab.chew, 81 MG PO DAILY for blood thinner, % 12/14/19 Tramadol Hcl (TRAMADOL HCL) 50 Mg Tablet, 50 MG PO PRN Q6HRS PRN for PAIN, TAB 07/17/19 Gabapentin (GABAPENTIN ) 300 Mg Capsule, 300 MG PO TID for NEUROGENIC PAIN, CAP 07/17/19 JAROCHO CHRISTIANSON MD Dec 19, 2019 10:12
[2019-12-19 10:48] VITALS: BP 137/82
--- NOTE | 2019-12-19 10:54 | RAD ---
CT MAXILLOFACIAL WO CONTRAST DATE: 12/19/2019 9:21 AM INDICATION: Sinus infection. COMPARISON: None. TECHNIQUE: CT images of the paranasal sinuses were obtained without intravenous contrast. Coronal and sagittal reformatted images were performed at a separate workstation and reviewed. One or more of the following dose reduction techniques were utilized: Automated exposure control (AEC), Adjustment of mA and/or kV according to patient size, Use of iterative reconstruction technique such as ASiR, CT scan done according to ALARA and image gently/image wisely FINDINGS: Minimal paranasal sinus mucosal thickening. No air-fluid levels. No significant mucoperiosteal thickening. No significant nasal septal deviation. The visualized osseous structures are otherwise normal. The visualized orbits and globes are normal. The visualized brain parenchyma is normal in attenuation. IMPRESSION: Minimal paranasal sinus mucosal thickening. No air-fluid levels to suggest acute sinusitis. Electronically signed by: Davian Suggs MD (12/19/2019 10:51 AM) [id number]
[2019-12-19 14:33] VITALS: BP 144/82
--- NOTE | 2019-12-19 15:29 | NUR ---
NURSING NOTE DISCHARGE PT DISCHARGED HOME VIA AMBULATION ACCOMPANIED BY . PT IS GOING TO COME IN AN OUTPT FOR NEXT DOSE AND PLAN IS FOR [facility] TO MEET THEM TONIGHT AT HOME TO SET UP HOME INFUSIONS. WRITTEN AND VERBAL DISCHARGE INSTRUCTIONS GIVEN TO PT. NO COMPLICATIONS. TY GODOY.
--- NOTE | 2019-12-19 16:18 | NUR ---
Order Verified Yes Consent signed Yes Previous PICC placement Yes Past Medical/Surgical history and current diagnosis reviewed Yes Patient Medical /Surgical History Related to PICC line placement None Special considerations for PICC line placement None PICC placement indication long term care phlebotomist antibiotic usage, Name of PICC Nurse Bhavya Hermosillo RN
--- NOTE | 2019-12-19 16:19 | NUR ---
Procedure: Following complete explanation of the PICC procedure including the indications, risks, and potential complications, informed consent was obtained. The possibility for infection was discussed along with signs, symptoms, and prevention. All the patient's questions were answered. IV Device Protocol was used. Written and verbal patient education was provided. Hand hygiene performed. Standardized central line checklist was utilized. The patient was placed in the supine position, the right arm was prepped with chlorhexidine and patient draped with maximum sterile barrier. 1 mL 1% lidocaine was infiltrated into the skin to provide local anesthesia. A thorough assessment of the right upper extremity completed. The basilic vein measured 4mm. Using real-time ultrasound guidance and standardized micro puncture set, the basilic vein was punctured and a peel away sheath was placed using the modified Seldinger technique. A tip location device was used to ensure adequate catheter placement. The catheter was secured using a securement device and an antimicrobial patch was applied directly on the insertion site followed by a transparent dressing. The purple port withdrew blood and flushed without resistance. Patient tolerated the procedure without apparent complication. A single Lumen Power PICC placement successful and uncomplicated. Placement verified by EKG tip confirmation system with green p wave verification seen. Tip located in the low svc per 3cg Complications: None
--- NOTE | 2019-12-19 17:33 | DS ---
DATE OF DISCHARGE: 12/19/2019 HOSPITAL COURSE: This is a patient with tonsillitis and the patient had problems with he required IV antibiotic therapy. He did quite well. He was afebrile for probably 36 hours or more. He was switched over to oral Augmentin as he had been on Unasyn; however, within a few days after the oral antibiotic, he began to run a temperature again and went as high as 101.7. He was having difficulty in breathing and as a result of that, the patient was readmitted to the hospital for IV antibiotic therapy, PICC line placement and continue Unasyn therapy at home per his insurance will arrange for that. The patient's CT scan on the other hand did show marked improvement and there was no obvious abscess in that area. The patient's sinus films showed some mild sinusitis, but nothing dramatic noted. As noted, CT scan showed improvement of the acute tonsillitis. The patient had no further problems breathing. He was discharged home, followed up as an outpatient. He will continue with the prednisone and IV Augmentin and follow up in the office in 7-10 days or sooner as needed. Also get him into ENT doctors for further evaluation and treatment thereof. JAROCHO CHRISTIANSON MD DR: MIGUEL/gilles JOB#: [id number] / [id number]
== END 2019-12-19 15:31 | disposition home IV services (08) | DRG 872 ==
LOC: ER 07:21 → 1 SOUTH 10:34
PROVIDERS: ADMIT Family Medicine; ATTEND Family Medicine
PROC: 02HV33Z Insertion of Infusion Device into Superior Vena Cava, Percutaneous Approach (ICD-10-PCS; principal; 2019-12-19)
PROC: B548ZZA Ultrasonography of Superior Vena Cava, Guidance (ICD-10-PCS; 2019-12-19)
DX: A41.9 Sepsis, unspecified organism (principal); J36 Peritonsillar abscess; Z88.8 Allergy status to other drugs, medicaments and biological substances; Z90.49 Acquired absence of other specified parts of digestive tract; G47.33 Obstructive sleep apnea (adult) (pediatric)
CPT/HCPCS: 36415; 36569; 70486; 70491; 80048; 80053; 83605; 85025; 87040; 87641; 87804; 94640; 96361; 96374; 96375; J0295; J2270; J2920; J2930; Q9967; 99285-25; J7030

== ENCOUNTER → 2019-12-29 | Outpatient (CLI) | payer BC ==
[~2019-12-29] MED LIST changes: +AMPI3VIA5 IJ; +CLINDAMYCIN 600MG PREMIX 50 ML IV ONE; +LACT1CAP19 PO; +MECL-75 PO; +PRED20TA PO
[2019-12-29 13:00] VITALS: BP 125/82
[2019-12-29 14:22] VITALS: BP 109/71
== END | disposition home or self-care (01) ==
LOC: OPINF 13:08
PROVIDERS: ATTEND Family Medicine
DX: J36 Peritonsillar abscess (principal); E43 Unspecified severe protein-calorie malnutrition
CPT/HCPCS: 96365; J3490

== ENCOUNTER 2020-01-03 07:21 | Emergency (ER) | payer BC ==
[~2020-01-03] VITALS: Ht 182.9 cm; Wt 91.4 kg
[~2020-01-03 07:21] MED LIST changes: -CLINDAMYCIN 600MG PREMIX 50 ML IV ONE; -MECL-75 PO; -PRED20TA PO
[2020-01-03] MEDS ORDERED: PRED20TA PO (07:41)
[2020-01-03] MEDS ORDERED: MECL-75 PO (07:41)
--- NOTE | 2020-01-03 07:42 | PHYS DOC ---
Past History Past Medical History: Anxiety Past Surgical History: Cholecystectomy, Other Additional Past Surgical Histo: BILAT KNEE; BACK SURGERY Alcohol Use: None Adult General Chief Complaint Chief Complaint: DIZZY/LIGHT HEADED HPI HPI Patient is a 54-year-old male who presents to the ER with complaint of ongoing dizziness with head movements since Tuesday. Patient reports he has been treated for peritonsillar abscess recently with IV clindamycin which was increased on Tuesday and then he was transitioned to oral amoxicillin on Tuesday by his primary care physician as he felt as though this may be the contributing factor to his dizziness. He has had pressure in his ears recently as well. No fever or chills. Patient denies headache or localized numbness or tingling or strokelike symptoms. Review of Systems Review of Systems All other systems were reviewed and found to be within normal limits, except as documented in this note. Allergies Allergies Allergies Coded Allergies Type Severity Reaction Last Updated Verified NKMA Allergy Unknown 12/17/19 Yes Physical Exam Physical Exam Constitutional: Well developed, well nourished, no acute distress, non-toxic appearance. [] HENT: Normocephalic, atraumatic, bilateral external ears normal, oropharynx moist, no oral exudates, nose normal. The right tympanic membrane is clear and the left tympanic membrane has some fluid behind it with slight irritation and no overt infection. Eyes: PERRLA, EOMI, conjunctiva normal, no discharge. [] Neck: Normal range of motion, no tenderness, supple, no stridor. [] Cardiovascular:Heart rate regular rhythm, no murmur [] Lungs & Thorax: Bilateral breath sounds clear to auscultation [] Abdomen: Bowel sounds normal, soft, no tenderness, no masses, no pulsatile masses. [] Skin: Warm, dry, no erythema, no rash. [] Back: No tenderness, no CVA tenderness. [] Extremities: No tenderness, no cyanosis, no clubbing, ROM intact, no edema. [] Neurologic: Alert and oriented X 3, normal motor function, normal sensory function, no focal deficits noted. [] Psychologic: Affect normal, judgement normal, mood normal. [] EKG EKG [] Radiology/Procedures Radiology/Procedures [] Course & Med Decision Making Course & Med Decision Making Pertinent Labs and Imaging studies reviewed. (See chart for details) Patient symptoms and history are consistent with benign positional vertigo. I will start him on low-dose prednisone and also start him on meclizine and provide Anthony maneuver information. Patient is instructed that these symptoms should resolve over the next 2 to 3 days and if his symptoms worsen or he develops localized numbness tingling or weakness he should return to the ER for further evaluation. Dragon Disclaimer Dragon Disclaimer This electronic medical record was generated, in whole or in part, using a voice recognition dictation system. Departure Departure: Impression: Primary Impression: Benign positional vertigo Disposition: HOME, SELF-CARE Condition: STABLE Referrals: JAROCHO CHRISTIANSON MD (PCP) Follow-up as needed Patient Instructions: Benign Positional Vertigo Additional Instructions: Please return to the ER if your symptoms worsen or you experience localized numbness tingling or weakness that would be concerning for a stroke. Scripts Meclizine Hcl (MECLIZINE HCL) 25 Mg Tablet 1 TAB PO PRN TID for Dizziness, #30 TAB Prov: JIM MAK DO 01/03/20 Prednisone (PREDNISONE) 20 Mg Tablet 20 MG PO DAILY for Dizziness for 5 Days, #5 TAB Prov: JIM MAK DO 01/03/20 JIM MAK DO Jan 03, 2020 07:42
[2020-01-03] MEDS ORDERED: MECLIZINE 12.5 MG TABLET. PO ONE (07:45)
[2020-01-03] MEDS ORDERED: predniSONE 20 MG TABLET PO ONE (07:45)
[2020-01-03 08:07] VITALS: BP 131/80
== END 2020-01-03 08:07 | disposition home or self-care (01) ==
LOC: ER 07:21
DX: H81.12 Benign paroxysmal vertigo, left ear (principal)
CPT/HCPCS: 99283; J7512; J8597